=== PATIENT | female | born 2005 | race Caucasian/White ===

== ENCOUNTER 2023-07-25 06:01 | Inpatient (IN) | payer OTHER, SELFPAY ==
[2023-07-24 23:49] VITALS: BP 136/83
[2023-07-25] VITALS (10 sets, daily range): BP systolic 91–106; BP diastolic 49–67; BMI 21.9
[2023-07-25] MEDS: TYLENOL 650 MG PO ×4 (00:40→19:32)
--- NOTE | 2023-07-25 00:49 | ED.GENMED ---
History of Present Illness
General
Chief Complaint: Fever
Source: patient and family
Time Seen by Provider: 07/25/23 00:36
Travel History
Have you had any contact with someone who has COVID-19?: No
Do you have any symptoms of coronavirus? Fever > 100 degrees, chills, cough, shortness of breath, sore throat, loss of taste or smell, muscle aches, or headache?: No
History of Present Illness
History of Present Illness:
This patient is a very pleasant 17-year-old female who states that 1 week ago, last Wednesday, she noted dysuria and urinary frequency associated with urgency. The symptoms lasted until Wednesday and then spontaneously resolved. Coincidentally, on
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 Since that fall she has had discomfort in the right mid back area that is prickly worse when she moves a certain way. She states that it now also sort of feels
like it is under her ribs. She denies recent immobilization, leg swelling, recent vaginal discharge, abdominal pain. She does have mild anorexia today and developed fever today. She denies nausea, vomiting, URI symptoms. She does state a sick
contact and that her college roommate was recently diagnosed with an ear infection.
Past History
Past History
ED Past Medical History: Hypothyroidism
ED Past Surgical History: Tonsilectomy and Other (Thyroid cancer removal)
Social History
Tobacco: Non-smoker (vaping)
Alcohol: None
Drug: None
Personal: Single
Living: with roommate
Employment: Student
Phy Exam
Physical Exam
Physical Exam:
GENERAL: Alert , in no apparent distress, overall well-appearing nontoxic
EYE: pupils equal and reactive, no photophobia
NECK: Supple, no significant adenopathy.
ENT: o/p clr, mmm, TMs clear bilaterally.
CARDIAC: Regular rate and rhythm .
LUNGS: Clear breath sounds bilaterally, no acute respiratory distress, no wheezes/rales/rhonchi
ABDOMEN: Soft, without focal tenderness, no r/g, + right-sided cvat
NEUROLOGICAL: Alert and oriented, no focal neuro deficits
SKIN: Warm and dry, skin intact.
MUSCULOSKELETAL: No edema, well perfused.
PSYCH: Normal and appropriate interaction.
Course
Orders/Labs/Results
Orders:
Orders
07/25/23 00:17
Acetaminophen [Tylenol] 650 mg PO NOW STA
07/25/23 00:18
Test Result ONCE
07/25/23 00:43
Complete Blood Count/With Diff Urgent
Comprehensive Metabolic Panel Urgent
HCG, Serum Qualitative Screen Stat
TSH Reflex To Free T4 Urgent
Comment: ADD ON
Urinalysis Reflex To Culture Urgent
Date Specimen was Collected: 07/25/23
Time Specimen was Collected: 00:41
Urine Microscopic Reflex Cult Urgent
Blood Culture Q30M
POOL Source: Blood/Venous
Specimen Description:
Blood Culture Q30M
POOL Source: Blood/Venous
Specimen Description:
Urine Culture Urgent
POOL Source: U
Specimen Description:
Date Specimen was Collected: 07/25/23
Time Specimen was Collected: 00:41
07/25/23 00:52
0.9% Sodium Chloride 500 ml [Nss] 500 ml IV BOLUS
07/25/23 01:05
Add On- LAB Urgent
Tests Added?: TSH reflex t4
07/25/23 01:50
Piperacillin/Tazo 3.375 Gram [Zosyn] 3.375 gram in 50 ml IV NOW
07/25/23 04:05
0.9% Sodium Chloride 250 ml [Nss] 250 ml IV BOLUS
07/25/23 05:06
Ketorolac [Toradol] 15 mg IV NOW STA
07/25/23 05:18
Admit/Transfer Patient As Directed
Co-Sign Provider:
Level of Care: Inpatient admission
Assign to:: Telemetry
Physician / Group: Spenser
Diagnosis: Sepsis, Pyelonephritis
Reason for Telemetry: Arrhythmia
Date to Stop Telemetry: 07/28/23
Time to Stop Telemetry: 11:00
Reason for Hospitalization: Sepsis, Pyelonephritis
Expected length of stay greater than two midnights?: Yes
ELOS- Estimated Length of Stay in days: 2
I certify the patient meets the requirements for IP care: Yes
07/25/23 05:19
Code Status As Directed
Resuscitation Status: Full Code
07/25/23 08:08
Acetaminophen [Tylenol] 650 mg PO Q4HPRN PRN
Ondansetron Injectable [Zofran] 4 mg IV Q6HPRN PRN
07/25/23 08:08
Activity As Directed
Activity Level: Ambulate
I/O [Intake/ Output] As Directed
Frequency: Per unit guidelines
Pneumatic Compression Sleeves As Directed
Type: Knee high
Vital Signs As Directed
Frequency: Per unit guidelines
US Renal With Bladder Routine
Comment:
Reason For Exam: Right Pyelo
DX Deep Vein Thrombosis Video Routine
07/25/23 08:15
Lactated Ringers [Lr] 1,000 ml IV 125 mls/hr
Levothyroxine [Synthroid] 50 mcg PO DAILY@0700
07/25/23 10:00
Piperacillin/Tazo 3.375 Gram [Zosyn] 3.375 gram in 50 ml IV Q6H
07/25/23 11:09
Ketorolac [Toradol] 15 mg IV Q6HPRN PRN
07/25/23 Dinner
Regular
At Your Request: Full Participation
07/26/23 07:32
Basic Metabolic Panel IN AM
Complete Blood Count/No Diff IN AM
07/28/23 11:00
DC Protocol for Telemetry ONCE
Abnormal Lab Results
07/25/23
00:43
WBC 11.8 H 10^3/uL
(4.8-10.8)
RBC 4.12 L 10^6/uL
(4.20-5.40)
Hct 35.9 L %
(37.0-47.0)
MPV 11.8 H fL
(7.4-10.4)
Abs Immat Gran (auto) 0.2 H 10^3/uL
(0-0.05)
Absolute Neuts (auto) 10.5 H 10^3/uL
(1.4-6.5)
Absolute Lymphs (auto) 0.5 L 10^3/uL
(1.2-3.4)
Absolute Monos (auto) 0.7 H 10^3/uL
(0.1-0.6)
Immature Gran % 1.4 H %
(0-0.5)
Neutrophils % 88.7 H %
(42.2-75.2)
Lymphocytes % 3.8 L %
(20.5-51.1)
Potassium 3.4 L mmol/L
(3.5-5.1)
Glucose 137 H mg/dl
(70-99)
Ur Occult Blood Reflex Trace A
(Negative)
Urine Nitrite (Reflex) Positive A
(Negative)
Leukocyte Esterase Rfl 1+ A
(Negative)
Urine RBC 3-6 A /HPF
(0-2)
Urine WBC (Reflex) 70-80 A /HPF
(0-5)
Urine Bacteria (Reflex) Many A
(Negative)
07/25/23 00:43
07/25/23 00:43
Vital Signs
Initial and Last Documented VS:
Initial Vital Signs
Temp Pulse Resp BP Pulse Ox
100.4 F H 138 16 136/83 100
07/24/23 23:49 07/24/23 23:49 07/24/23 23:49 07/24/23 23:49 07/24/23 23:49
Last Documented Vital Signs
Temp Pulse Resp BP Pulse Ox
99.1 F 97 18 109/70 95
07/28/23 07:50 07/28/23 07:50 07/28/23 07:50 07/28/23 07:50 07/28/23 08:15
*Critical Care Note
Total Time (30-74mins, 75-104mins- exclusive of procedures): Not Applicable
Update Note
Update Note:
Patient presents to the Emergency Department with ___back pain and fever
Number and Complexity of Problems Addressed at the Encounter
� Chronic conditions affecting care:
� Acute Exacerbation and/or Progression of Chronic Illness:
� Differential Diagnosis includes: But not limited to UTI, pyelonephritis, musculoskeletal injury, viral syndrome, etc.
Amount and/or Complexity of Data to be Reviewed and Analyzed
� I performed an independent evaluation of and my interpretation is:
EKG:
CT:
Xrays:
Laboratory Studies: Mild white blood cell count elevation, slight shift noted, urine appears infected
Other:
� Review of other/old records reveals:
� Clinical information was obtained by an independent historian: Father who is at bedside
� Prescriptions/Medications Considered but not given:
� Further testing considered but not performed:
Risk of Complications and/or Morbidity or Mortality of Patient Management
� Social determinants of health affecting care:
� Discussion with other providers (PCP, Hospitalists, Consultants, etc):
� Escalation of care including admission/observation vs risk of discharge considered: Clinically appears that patient has pyelonephritis given fever, CVA tenderness, infected urine, white blood cell count elevation. She does not
appear to have more serious illness, and does not appear to be septic or have impending sepsis/bacteremia. Long discussion with patient, father who is bedside, and mother via phone given option for admission/observation versus going home with
expectant management and p.o. antibiotics they elect for discharge.
405 AM Reassessment...pt remains sl tachycardic. In context of left shift, persistent tachycardia, recommend admission for continued care.
ED Attending Note
-
Portions of this chart may have been created with voice recognition software.� Occasional wrong word or��sound alike� substitutions may have occurred due to the inherent limitations of voice recognition software.
Discharge Plan
Departure
Patient Disposition: Admit
Date of Disposition: 07/25/23
Time of Disposition: 04:06
Admit to: Med/Surg
Admit to doctor: spenser
Presentation/result/management discussed w/ accepting MD/DO: Hospitalist
Condition: Fair
Discharge Problem:
Pyelonephritis
Interventions
Interventions:
*Risk Screen - Suicide Last Done: 07/24/23 23:49
*General Assessment Last Done: 07/24/23 23:49
*Neglect/Abuse Screening Last Done: 07/24/23 23:49
ED- Fall Risk Assessment Last Done: 07/25/23 01:06
*ED COVID-19 Vaccine History Last Done: 07/25/23 07:06
*Nursing Disposition Last Done: 07/25/23 14:46
GV-Seagwg-Xyvoquuqxs Assessment Last Done: 07/25/23 01:06
ED-Female Genitourinary Assessment Last Done: 07/25/23 01:06
ED- Neurological Assessment Last Done: 07/25/23 01:06
ED-Skin Assessment Last Done: 07/25/23 01:06
Discharge Date and Time
Discharge Date/Time: 07/25/23 14:47
[2023-07-25] MEDS: NSS 500 IV (00:57)
[2023-07-25 00:59] LABS: Urine Albumin Trace (Neg - Trace); Urine Bilirubin Negative (Negative); Urine Character Slightly Cloudy (Clear); Urine Color Yellow; Urine Glucose Negative (Negative); Urine Ketone Negative (Negative); Urine Leukocyte 1+ (Negative); Urine Nitrite Positive (Negative); Urine Occult Blood Trace (Negative); Urine Specific Gravity 1.015 (<1.030); Urine Urobilinogen Negative (Neg - 1+)
[2023-07-25 01:11] LABS: HCG, Serum Qualitative Screen Negative
[2023-07-25 01:16] LABS: ALT (SGPT) 14 U/L (0-35); AST (SGOT) 17 U/L (14-36); Albumin 3.8 g/dl (3.5-5.0); Alkaline Phosphatase 71 U/L (38-126); Blood Urea Nitrogen 8 mg/dl (7-17); Calcium 8.9 mg/dl (8.4-10.2); Carbon Dioxide 23 mmol/L (22-30); Chloride 106 mmol/L (98-107); Glucose 137 mg/dl (70-99); Potassium 3.4 mmol/L (3.5-5.1); Sodium 139 mmol/L (135-145); Total Bilirubin 0.4 mg/dl (0.2-1.3); Total Protein 6.4 g/dl (6.3-8.2); eGFR > 60.00
[2023-07-25 01:17] LABS: % Basophils 0.2 % (0-2); % Eosinophils 0.1 % (0-6); % Immature Granulocytes 1.4 % (0-0.5); % Lymphocytes 3.8 % (20.5-51.1); % Monocytes 5.8 % (1.7-9.3); % Neutrophils 88.7 % (42.2-75.2); Absolute Immature Granulocytes 0.2 10^3/uL (0-0.05); Absolute Lymphocytes 0.5 10^3/uL (1.2-3.4); Absolute Monocytes 0.7 10^3/uL (0.1-0.6); Absolute Neutrophils 10.5 10^3/uL (1.4-6.5); Hematocrit 35.9 % (37.0-47.0); Hemoglobin 12.2 g/dL (12.0-16.0); Mean Corpuscular Hgb 29.6 pg (27.0-31.0); Mean Corpuscular Volume 87.1 fL (81.0-99.0); Mean Platelet Volume 11.8 fL (7.4-10.4); Nucleated Red Blood Cells % 0 %; Platelet Count 150 10^3/uL (130-400); Red Blood Cell Count 4.12 10^6/uL (4.20-5.40); Red Cell Dist. Width 12.5 % (11.5-14.5); White Blood Cell Count 11.8 10^3/uL (4.8-10.8)
[2023-07-25 01:22] LABS: Urine Bacteria Many (Negative); Urine White Cell 70-80 /HPF (0-5)
[2023-07-25 03:14] LABS: TSH Reflex To Free T4 1.87 uIU/ml (0.47-4.68)
[2023-07-25] MEDS: ZOSYN 50 IV ×4 (03:17→21:36)
[2023-07-25] MEDS: NSS 250 IV (04:12)
--- NOTE | 2023-07-25 05:06 | EDRN ---
Patient reporting some discomfort in her back asking for some meds, Dr. Roberts aware and medication ordered.
[2023-07-25] MEDS: TORADOL 15 MG IV ×2 (05:09→17:51)
--- NOTE | 2023-07-25 05:22 | HPS.HSE ---
Family Physician
-
Family Physician: Rg Morris
Chief Complaint
-
R Flank Pain / Fever
History of Present Illness
Patient is a 17y F with PMH significant for thyroid cancer / Mari's thyroiditis who presents to ED complaining of fever and R flank pain. Patient states that she developed dysuria about one week ago. On Wednesday, the dysuria resolved -
however, she then noted pain in the R flank. Patient states that she had a sports injury just prior to this and thought that was the reason for her pain. The flank pain did not improve and worsened over the past few days. It radiates into the
upper back and anterior / abdomen.
Patient developed a fever at home yesterday up to 103.9 degrees. She presented to the ED for further evaluation.
Medical History
Past Medical History
Past Medical History: Reports Other
Additional Past Medical History:
Papillary Carcinoma of the Thyroid
Mari's Disease
Past Surgical History: Reports Other
Additional Past Surgical History:
Partial Thyroidectomy
T&A
Social History
Tobacco: Non-smoker
Alcohol: Occasional
Drug: None
Family History
Family History: Not pertinent
Allergies / Home Medications
Allergies reflects when Allergies were last updated in Risk I/O.
Home Medications with original date entered in Risk I/O
Allergy/Medication List:
Allergies
Allergy/AdvReac Type Severity Reaction Status Date / Time
cephalexin monohydrate Allergy Intermediate Rash Verified 02/12/21 05:42
[From Keflex]
morphine Allergy Intermediate Rash Verified 02/12/21 05:42
midazolam AdvReac behavioral Verified 02/12/21 05:42
change,
agitation
Home Medications
levothyroxine 50 mcg tablet 50 mcg PO DAILY 07/25/23
Review of Systems
-
History Source: Patient
A 12 point ROS was completed and negative except as noted: Yes
Constitutional: Reports Fever and Chills; Denies Fatigue
Respiratory: Denies Cough or Trouble Breathing
Cardiac: Denies Chest Pain or Palpitations
Abdomen/GI: Reports Abdominal Pain and Nausea; Denies Vomiting, Diarrhea or Constipated
: Reports Dysuria, Frequency and Flank Pain; Denies Bleeding or Discharge
Neurological: Denies Dizzy or Headache
Psych: Denies Depression or Anxiety
Physical Exam
Vital Signs
Vital Signs
Temp Pulse Resp BP Pulse Ox
98.6 F 96 16 95/53 99
07/25/23 05:06 07/25/23 05:06 07/25/23 05:06 07/25/23 05:06 07/25/23 05:06
Physical Exam
General: Other (17y F in no acute distress.)
HEENT: Moist mucous membranes, PERRLA and Other (Thyroidectomy scar.)
Respiratory: Clear and Other (pain with deep breathing.); No Wheezes, Rales or Rhonchi
Cardiac: S1/S2 and Regular Rhythm; No Murmur
GI: Soft, Non Distended, Normal Bowel Sounds and Other (Pos R sided abdominal tenderness without rebound / guarding.)
Genito-urinary: Costovertebral angle tend (Right CVAT)
Musculoskeletal: No Clubbing, No Cyanosis and No Edema
Neuro: AO x 3
Laboratory Results
-
07/25/23 00:43
07/25/23 00:43
Laboratory Results
Total Bilirubin 0.4 mg/dl (0.2-1.3) 07/25/23 00:43
AST 17 U/L (14-36) 07/25/23 00:43
ALT 14 U/L (0-35) 07/25/23 00:43
Alkaline Phosphatase 71 U/L (38-126) 07/25/23 00:43
Impression/Plan
-
A?P: Patient is a 17y F with PMH significant for thyroid cancer / hypothyroidism who presents to ED complaining of right flank pain and fevers.
Right Pyelonephritis
Sepsis secondary to the above
- Admit for further evaluation and treatment.
- Patient presents with fever, tachycardia and leukocytosis in the setting of urinary symptoms, flank pain and positive UA.
- IV abx with Zosyn (allergic to cephalosporins). Follow-up culture data and adjust as needed.
- Supportive care including antipyretics, pain control, IVFs, etc.
- Follow for clinical improvement.
- Change to PO regimen once afebrile x 24 hours.
Papillary Carcinoma of the Thyroid
- Patient is s/p partial thyroidectomy.
- Has follow-up scan scheduled for Wednesday at [place] - may need to be rescheduled depending on hospital course here.
Hypothyroidism
- Stable. Continue current T4 supplementation / suppression.
DVT Prophylaxis: SCDs
Code Status: Full
--- NOTE | 2023-07-25 06:04 | EDRN ---
Resting with mom at bedside
[2023-07-25] MEDS: LR 1000 IV ×2 (08:24→15:33)
[2023-07-25] MEDS: SYNTHROID 50 MCG PO (08:25)
--- NOTE | 2023-07-25 14:11 | W.PN.UPDATE ---
Update Note
Progress Note Update
Dr. Greenwood this morning.
Admitted for right Kidney pyelonephritis. She is hemodynamically stable. Nontoxic looking.
Ultrasound of the abdomen shows no nephrolithiasis or obstruction. 2 separate areas 2 cm densities are noted .
Will need CT of the kidneys with contrast to evaluate for abscess.
This was discussed with patient and the parents at the bedside. Continue with Zosyn
[2023-07-25 20:49] LABS: HCG, Urine Qualitative Screen Negative
[2023-07-26] VITALS (7 sets, daily range): BP systolic 86–125; BP diastolic 47–63
[2023-07-26] MEDS: LR 1000 IV ×4 (00:31→19:41)
[2023-07-26] MEDS: TORADOL 15 MG IV ×3 (01:04→23:49)
[2023-07-26] MEDS: TYLENOL 650 MG PO ×4 (02:45→22:26)
--- NOTE | 2023-07-26 04:04 | PTCARENOTE ---
Patient BP- 86/54, HR-111. patient is asymptomatic/sleeping at this time. MANJIT Barragan made aware.
[2023-07-26] MEDS: ZOSYN 50 IV ×4 (04:49→21:02)
[2023-07-26] MEDS: SYNTHROID 50 MCG PO (04:55)
[2023-07-26 07:51] LABS: Mean Corp Hgb Conc. 34.5 g/dL (33.0-37.0); Mean Corpuscular Hgb 28.9 pg (27.0-31.0); Mean Corpuscular Volume 83.8 fL (81.0-99.0); Mean Platelet Volume 11.7 fL (7.4-10.4); Platelet Count 142 10^3/uL (130-400); Red Blood Cell Count 3.46 10^6/uL (4.20-5.40); Red Cell Dist. Width 13.2 % (11.5-14.5); White Blood Cell Count 12.4 10^3/uL (4.8-10.8)
[2023-07-26 08:18] LABS: Blood Urea Nitrogen 9 mg/dl (7-17); Calcium 7.8 mg/dl (8.4-10.2); Carbon Dioxide 23 mmol/L (22-30); Chloride 104 mmol/L (98-107); Estimated Creatinine Clearance 107 ml/min; Glucose 98 mg/dl (70-99); Potassium 3.3 mmol/L (3.5-5.1); Sodium 135 mmol/L (135-145); eGFR > 60.00
[2023-07-26] MEDS: KCL ELIXIR 40 MEQ PO (09:27)
--- NOTE | 2023-07-26 12:34 | CM ---
Chart reviewed. Spoke with pt and parents at bedside
Pt lives in a 2 story home with her parents and sister. She is in school, independent
Denies DME, past HH/SNF
PCP -Dr Rg Morris
Pharm - [facility]
Plan - anticipate home no needs
--- NOTE | 2023-07-26 14:23 | W.PN.HOSP.TC ---
Today's Communication/Plan
-
cont abx
f/u GC
F/u cultures
IVF
Assessment / Plan
Assessment / Plan
Physical Exam
General: Other (17y F in no acute distress.)
HEENT: Moist mucous membranes, PERRLA and Other (Thyroidectomy scar.)
Respiratory: Clear and Other (pain with deep breathing.); No Wheezes, Rales or Rhonchi
Cardiac: S1/S2 and Regular Rhythm; No Murmur
GI: Soft, Non Distended, Normal Bowel Sounds and Other (Pos R sided abdominal tenderness without rebound / guarding.)
Genito-urinary: Costovertebral angle tend (Right CVAT)
Musculoskeletal: No Clubbing, No Cyanosis and No Edema
Neuro: AO x 3
A/P:� Patient is a 17y F with PMH significant for thyroid cancer / hypothyroidism who presents to ED complaining of right flank pain and fevers.
Right Pyelonephritis
Sepsis secondary to the above
� E. coli
-Symptomatically improving
- IV abx with Zosyn (allergic to cephalosporins).� Follow-up culture data and adjust as needed.
�- Supportive care including antipyretics, pain control, IVFs, etc.
�- Follow for clinical improvement.
�- Change to PO regimen once afebrile x 24 hours.
� Follow-up GC
Hypokalemia
-monitor and replete
Papillary Carcinoma of the Thyroid
�- Patient is s/p partial thyroidectomy.
�- Has follow-up scan scheduled for Wednesday at [place] - may need to be rescheduled depending on hospital course here.
Hypothyroidism
�- Stable.� Continue current T4 supplementation / suppression.
DVT Prophylaxis:� SCDs
Code Status:� Full
Anticipated Discharge: Within 24 hours
Subjective/Interval History
-
Date of Service: July 26, 2023
Symptoms improved today, nontoxic
Objective Data
-
Labs:
Laboratory Results
07/26/23
07:32
WBC 12.4 H
Hgb 10.0 L
Hct 29.0 L
Plt Count 142
Sodium 135
Potassium 3.3 L
Chloride 104
Carbon Dioxide 23
BUN 9
Creatinine 0.7
Glucose 98
Calcium 7.8 L
Vital Signs:
Vital Signs
Temp Pulse Resp BP Pulse Ox
98.4 F 111 18 104/54 97
07/26/23 11:31 07/26/23 11:31 07/26/23 11:31 07/26/23 11:31 07/26/23 11:31
I&O
07/25/23 07/26/23 07/27/23
06:59 06:59 06:59
Intake Total 2675 / 2675
Output Total 600 / 600
Balance 2074
Review of Systems
-
History Source: Patient
All other systems: Not reviewed unless documented
Data Reviewed
-
CT Scan: Image personally visualized and interpreted and Report Reviewed by me
Labs: Labs Reviewed by me
[2023-07-26] MEDS: KCL 40 MEQ PO (15:05)
[2023-07-27 03:20] VITALS: BP 117/71
[2023-07-27] MEDS: ZOSYN 50 IV ×2 (03:42→09:01)
[2023-07-27] MEDS: LR 1000 IV (03:43)
[2023-07-27] MEDS: TORADOL 15 MG IV (05:50)
[2023-07-27] MEDS: SYNTHROID 50 MCG PO (05:50)
[2023-07-27 07:27] VITALS: BP 113/74
[2023-07-27 08:36] LABS: Hematocrit 30.4 % (37.0-47.0); Hemoglobin 10.3 g/dL (12.0-16.0); Mean Corp Hgb Conc. 33.9 g/dL (33.0-37.0); Mean Corpuscular Hgb 28.8 pg (27.0-31.0); Mean Corpuscular Volume 84.9 fL (81.0-99.0); Mean Platelet Volume 11.8 fL (7.4-10.4); Platelet Count 173 10^3/uL (130-400); Red Blood Cell Count 3.58 10^6/uL (4.20-5.40); Red Cell Dist. Width 13.5 % (11.5-14.5); White Blood Cell Count 14.1 10^3/uL (4.8-10.8)
[2023-07-27 09:22] LABS: ALT (SGPT) 15 U/L (0-35); AST (SGOT) 19 U/L (14-36); Albumin 2.4 g/dl (3.5-5.0); Alkaline Phosphatase 80 U/L (38-126); Blood Urea Nitrogen 10 mg/dl (7-17); Calcium 8.1 mg/dl (8.4-10.2); Carbon Dioxide 22 mmol/L (22-30); Chloride 107 mmol/L (98-107); Estimated Creatinine Clearance 125 ml/min; Glucose 84 mg/dl (70-99); Potassium 3.7 mmol/L (3.5-5.1); Sodium 136 mmol/L (135-145); Total Bilirubin 0.4 mg/dl (0.2-1.3); Total Protein 4.7 g/dl (6.3-8.2); eGFR > 60.00
--- NOTE | 2023-07-27 14:46 | W.PN.HOSP.TC ---
Today's Communication/Plan
-
bacteremia
f/u final cultures
repeat blood cultures
ID consult
abd vio, hepatitis panel
stop fluids
Assessment / Plan
Assessment / Plan
Physical Exam
General: Other (17y F in no acute distress.)
HEENT: Moist mucous membranes, PERRLA and Other (Thyroidectomy scar.)
Respiratory: Clear and Other (pain with deep breathing.); No Wheezes, Rales or Rhonchi
Cardiac: S1/S2 and Regular Rhythm; No Murmur
GI: Soft, Non Distended, Normal Bowel Sounds and Other (Pos R sided abdominal tenderness without rebound / guarding.)
Genito-urinary: Costovertebral angle tend (Right CVAT)
Musculoskeletal: No Clubbing, No Cyanosis and No Edema
Neuro: AO x 3
A/P:� Patient is a 17y F with PMH significant for thyroid cancer / hypothyroidism who presents to ED complaining of right flank pain and fevers.
Right Pyelonephritis
Bacteremia
Sepsis secondary to the above
� E. coli, still following up cultures
-Symptomatically improving
- IV abx with Zosyn (allergic to cephalosporins).� Follow-up culture data and adjust as needed.
�- Supportive care including antipyretics, pain control, IVFs, etc.
�- Follow for clinical improvement.
�- Change to PO regimen once afebrile x 24 hours.
� repeat blood cultures today
-ID consulted for bacteremia
# Mild periportal edema
#Fluid attenuation surrounding gallbladder
� Abdominal fullness
� I suspect secondary to acute pyelonephritis, aggressive fluid resuscitation
� Stop IV fluids, hemodynamically stable
� Continue antibiotics
� Follow-up complete abdominal ultrasound, hepatitis panel for completeness sake
Hypokalemia
-monitor and replete
Papillary Carcinoma of the Thyroid
�- Patient is s/p partial thyroidectomy.
�- Has follow-up scan scheduled for Wednesday at [place] - may need to be rescheduled depending on hospital course here.
Hypothyroidism
�- Stable.� Continue current T4 supplementation / suppression.
DVT Prophylaxis:� SCDs
Code Status:� Full
Total time spent on today's encounter was 50 minutes which included time spent in counseling the patient/family regarding diagnosis and treatment plan as listed above, goals of care, and symptom management. Case was discussed with nursing staff,
specialists, and care coordinators/case management. All labs and imaging personally reviewed by me. Remainder the time spent in detailed review of previous records, lab data, imaging, and other medical provider documentation.
Anticipated Discharge: > 48 hours
Subjective/Interval History
-
Date of Service: July 27, 2023
Hai temperature last night, feels lethargic today; mild abdominal distention
Objective Data
-
Labs:
Laboratory Results
07/27/23
08:00
WBC 14.1 H
Hgb 10.3 L
Hct 30.4 L
Plt Count 173 D
Sodium 136
Potassium 3.7
Chloride 107
Carbon Dioxide 22
BUN 10
Creatinine 0.6
Glucose 84
Calcium 8.1 L
Total Bilirubin 0.4
AST 19
ALT 15
Alkaline Phosphatase 80
Vital Signs:
Vital Signs
Temp Pulse Resp BP Pulse Ox
98.9 F 104 18 113/74 93
07/27/23 07:27 07/27/23 07:27 07/27/23 07:27 07/27/23 07:27 07/27/23 10:42
I&O
07/26/23 07/27/23 07/28/23
06:59 06:59 06:59
Intake Total 2675 / 2675 1954
Output Total 600 / 600
Balance 2074 / 2074
Review of Systems
-
History Source: Patient
All other systems: Not reviewed unless documented
--- NOTE | 2023-07-27 14:59 | CON.ID ---
Consultation
-
Date/Time Consultation Requested: 07/27/2023, 1458
Date/Time Consultation Performed: 07/27/2023, 1500
Requesting Provider: Dr. Pedro Reyes
Performing Provider: Dr. Monique Rios
Reason for Consultation: Pyelo with bacteremia
Chief Complaint / Past History
Chief Complaint
Right flank pain
History of Present Illness
History obtained from patient and mom at bedside. 17 year old female with hx of thyroid ca s/p partial thyroidectomy, Mari thyroiditis who developed dysuria last week from Wed to Wed. Dysuria resolved. Wed night she was dancing in [place] and
fell. She started having right side back pain which she thought was from the fall. However, pain became severe. She also developed fever up to 103.9F and came to ED 07/23. T=100.4, wbc 11.8. Renal US suggestive of right pyelo. She was started on
Zosyn. Flank pain has improved. No c/o upper abd discomfort, swelling of feet and hands; IV fluid discontinued today. Last night had fever x 1 with chills. WBC remains elevated. No hx of pyelo. No hx of diagnosed UTI. Occassionally, she has
dysuria which spontaneously resolves. No recent diarrhea or stool incontinence.
Past History
Additional Past Medical History:
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
Allergy History:
cephalexin monohydrate [From Keflex] Allergy (Intermediate, Verified 02/12/21 05:42)
Rash
morphine Allergy (Intermediate, Verified 02/12/21 05:42)
Rash
midazolam Adverse Reaction (Verified 02/12/21 05:42)
behavioral change, agitation
Medications Reviewed: Yes
Current Antibiotics:
Zosyn d4
Social History
Tobacco: Non-Smoker
Alcohol: Occasional
Drug: None
Personal: Single
Family History
Family History: Not Pertinent
Review of Systems
Review of Systems
General: Fever and Chills
HEENT: Negative Stiff Neck, Sinus Problems, Headache or Pharyngitis
Cardiovascular: Negative Chest Pain
Respiratory: Negative Dyspnea or Cough
Gasteroenterology: Other (no diarrhea); Negative Nausea or Vomiting
Genital / Urological: Negative Stones
Endocrine: Negative Weakness
Musculoskeletal: Negative Arthralgias
Skin / Hair / Nails: Negative Rash
Neurological: Negative Headache or Dizziness
All systems: All other systems were reviewed and were negative
Vital Signs
Temp Pulse Resp BP Pulse Ox
98.9 F 104 18 113/74 93
07/27/23 07:27 07/27/23 07:27 07/27/23 07:27 07/27/23 07:27 07/27/23 10:42
Selected Entries
07/26/23
23:39
Temp 101.8 F H
Physical Exam
Physical Exam
Constitutional: No Acute Distress and Comfortable
Eyes: No Conjunctival Hemorrhage and Sclera Anicteric
Cardiovascular: Regular Rate and S1/S2
Pulmonary: Clear
Gastrointestinal: Soft, Non Tender, Non Distended and Normal Bowel Sounds
Genito-Urinary: Negative CVA Tenderness
Extremities: Edema (pedal/ankle edema)
Skin: Negative Rash
Neurological: AO x 3
Lab / Diagnostic Study Results
07/27/23 08:00
07/27/23 08:00
Abs Immat Gran (auto) 0.2 10^3/uL (0-0.05) H 07/25/23 00:43
Absolute Neuts (auto) 10.5 10^3/uL (1.4-6.5) H 07/25/23 00:43
Absolute Lymphs (auto) 0.5 10^3/uL (1.2-3.4) L 07/25/23 00:43
Absolute Monos (auto) 0.7 10^3/uL (0.1-0.6) H 07/25/23 00:43
Absolute Basos (auto) 0.0 10^3/uL (0-0.2) 07/25/23 00:43
Immature Gran % 1.4 % (0-0.5) H 07/25/23 00:43
Neutrophils % 88.7 % (42.2-75.2) H 07/25/23 00:43
Lymphocytes % 3.8 % (20.5-51.1) L 07/25/23 00:43
Monocytes % 5.8 % (1.7-9.3) 07/25/23 00:43
Eosinophils % 0.1 % (0-6) 07/25/23 00:43
Basophils % 0.2 % (0-2) 07/25/23 00:43
Ur Squamous Epith Cells 6-10 /LPF (Few) 07/25/23 00:43
Microbiology Results
Micro:
07/25/23 00:43 Blood Culture - Preliminary
Blood/Venous Escherichia coli
Gram Stain - Preliminary
07/25/23 00:43 Urine Culture - Final
Urine Escherichia coli
07/25/23 00:43 Blood Culture - Preliminary
Blood/Venous No Growth in 48 hours- Final report to follow
07/26/23 17:17 Chlamydia trachomatis (PCR) - Final
Urine Neisseria gonorrhoeae (PCR) - Final
CT a/p: Findings consistent with urinary tract infection on the right, with pyelonephritis. Perinephric edema, though without focal collection or abscess. No obstructing calculus.
Assessment / Plan
# E. coli Right pyelonephritis without obstruction
# E. coli bacteremia
# Sepsis - WBC trending up, recurrence of fever last night
- Agree with repeat blood cx's
- DC Zosyn
- Start po cipro 500mg bid
- Trend wbc and temps.
[2023-07-27] MEDS: LR IV (15:10)
[2023-07-27 15:30] VITALS: BP 113/77
[2023-07-27 16:01] LABS: Hepatitis B Surface Antigen Negative (Negative)
[2023-07-27 16:04] LABS: Hepatitis B Core Ab, IgM Negative (Negative)
--- NOTE | 2023-07-27 16:17 | CM ---
Chart reviewed for d/c planning
Transitioning to PO abx - and monitor VS/labs
CM will follow for d/c needs
Plan - home no needs
[2023-07-27 16:18] LABS: Hepatitis B Surface Antibody Negative; Hepatitis C Antibody Negative (Negative)
[2023-07-27 16:49] LABS: Hepatitis A IgM Antibody Negative (Negative)
[2023-07-27] MEDS: TYLENOL 650 MG PO (18:00)
[2023-07-27] MEDS: CIPRO 500 MG PO (21:21)
[2023-07-27 23:00] VITALS: BP 105/67
[2023-07-28] MEDS: TYLENOL 650 MG PO ×2 (04:06→19:11)
[2023-07-28] MEDS: SYNTHROID 50 MCG PO (05:49)
[2023-07-28 06:00] LABS: Hematocrit 28.5 % (37.0-47.0); Hemoglobin 9.9 g/dL (12.0-16.0); Mean Corp Hgb Conc. 34.7 g/dL (33.0-37.0); Mean Corpuscular Hgb 29.1 pg (27.0-31.0); Mean Corpuscular Volume 83.8 fL (81.0-99.0); Mean Platelet Volume 10.9 fL (7.4-10.4); Platelet Count 186 10^3/uL (130-400); Red Cell Dist. Width 13.6 % (11.5-14.5); White Blood Cell Count 7.9 10^3/uL (4.8-10.8)
[2023-07-28 06:30] LABS: ALT (SGPT) 16 U/L (0-35); AST (SGOT) 20 U/L (14-36); Albumin 2.4 g/dl (3.5-5.0); Alkaline Phosphatase 78 U/L (38-126); Blood Urea Nitrogen 12 mg/dl (7-17); Calcium 7.9 mg/dl (8.4-10.2); Carbon Dioxide 23 mmol/L (22-30); Chloride 106 mmol/L (98-107); Estimated Creatinine Clearance 125 ml/min; Glucose 97 mg/dl (70-99); Potassium 3.5 mmol/L (3.5-5.1); Sodium 137 mmol/L (135-145); Total Bilirubin 0.3 mg/dl (0.2-1.3); Total Protein 4.8 g/dl (6.3-8.2); eGFR > 60.00
[2023-07-28] MEDS: CIPRO 500 MG PO ×2 (07:28→21:54)
[2023-07-28 07:50] VITALS: BP 109/70
--- NOTE | 2023-07-28 13:17 | W.PN.ID1 ---
Date of Service
Date of Service: July 28, 2023
Today's Communication
See below
Assessment / Plan
# Recurrence of fever persists
# Leukocytosis resolved today
- Check COVID19
- Follow repeat blood cx's
-Trend temps.
# E. coli Right pyelonephritis without obstruction
# E. coli bacteremia
- Flank pain resolving
- Continue po cipro 500mg bid (d4 abx)
# Upper abd pain
- Abd US: trace ascites
-Check amylase, lipase in am
#Additional Past Medical History:
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
Chief Complaint
-: Fever and UTI
Subjective / Review of Systems
+ fevers/chills. Epigastric pain better.
No dysuria. Right flank pain resolving.
Vital Signs / Physical Exam
Vital Signs
Vital Signs
Temp Pulse Resp BP Pulse Ox
98.0 F 97 18 109/70 95
07/28/23 11:35 07/28/23 07:50 07/28/23 07:50 07/28/23 07:50 07/28/23 08:15
Selected Entries
07/27/23
17:48 07/28/23
04:06
Temp 103.0 F H 102.3 F H
Physical Exam
Constitutional: No Acute Distress
Cardiovascular: Regular Rate and S1/S2
Pulmonary: Other (Decreased BS bases)
Gastrointestinal: Soft, Non Tender and Non Distended
Genito-Urinary: Negative CVA Tenderness
Objective Data
Lab Data
Lab Results
07/28/23 05:39
07/28/23 05:39
Estimated Creat Clear 125 ml/min 07/28/23 05:39
Total Bilirubin 0.3 mg/dl (0.2-1.3) 07/28/23 05:39
AST 20 U/L (14-36) 07/28/23 05:39
ALT 16 U/L (0-35) 07/28/23 05:39
Alkaline Phosphatase 78 U/L (38-126) 07/28/23 05:39
Most recent labs reviewed.
Micro Results:
07/28/23 09:41 Blood Culture - Pending
Blood/Venous
07/25/23 00:43 Blood Culture - Preliminary
Blood/Venous No Growth in 72 hours- Final report to follow
07/27/23 15:47 Blood Culture - Pending
Blood/Venous
07/27/23 15:05 Blood Culture - Pending
Blood/Venous
07/25/23 00:43 Blood Culture - Preliminary
Blood/Venous Escherichia coli
Gram Stain - Preliminary
07/25/23 00:43 Urine Culture - Final
Urine Escherichia coli
07/26/23 17:17 Chlamydia trachomatis (PCR) - Final
Urine Neisseria gonorrhoeae (PCR) - Final
07/25/23 CT a/p: Findings consistent with urinary tract infection on the right, with pyelonephritis. Perinephric edema, though without focal collection or abscess. No obstructing calculus.
07/28/23 ABD US: Normal appearance of the gallbladder, with no evidence for biliary ductal dilation. Bilateral pleural effusions are present. Trace amount of ascites is seen within the abdomen.
--- NOTE | 2023-07-28 13:23 | PN.CDI ---
CDI
- -
CDI:
Physician Documentation Request
Admit Date: 07/25/23 06:01
Dear Doctor Silva,
Patient admitted with sepsis secondary to right pyelonephritis.
UA with many bacteria and positive nitrites.
Urine culture with E. coli
Patient received IV Zosyn and po Cipro.
Please provide in your note the diagnosis associated with the UA and urine culture findings:
E. coli UTI
Insignificant abnormal lab findings
Other
Use of terms such as suspected, likely, concern for, or probable (associated with a specific diagnosis that is being evaluated, monitored, or treated as if it exists) are acceptable and can be coded in the inpatient setting, when documented at the
time of discharge.
Thank you,
Tamy LEIN,RN,CCDS
CDI Specialist
Please use your independent medical judgment in providing your response.
[2023-07-28 13:52] LABS: COVID-19 Antigen Negative (Negative)
--- NOTE | 2023-07-28 14:12 | W.PN.HOSP.TC ---
Today's Communication/Plan
-
f/u covid
cont abx, f/u cultures
Assessment / Plan
Assessment / Plan
Physical Exam
General: Other (17y F in no acute distress.)
HEENT: Moist mucous membranes, PERRLA and Other (Thyroidectomy scar.)
Respiratory: Clear and Other (pain with deep breathing.); No Wheezes, Rales or Rhonchi
Cardiac: S1/S2 and Regular Rhythm; No Murmur
GI: Soft, Non Distended, Normal Bowel Sounds and Other (Pos R sided abdominal tenderness without rebound / guarding.)
Genito-urinary: Costovertebral angle tend (Right CVAT)
Musculoskeletal: No Clubbing, No Cyanosis and No Edema
Neuro: AO x 3
A/P:� Patient is a 17y F with PMH significant for thyroid cancer / hypothyroidism who presents to ED complaining of right flank pain and fevers.
Right Pyelonephritis
Bacteremia
Sepsis secondary to the above
� E. coli, still following up cultures
-Symptomatically improving
- Continue po cipro 500mg bid (d4 abx) Follow-up culture data and adjust as needed.
�- Supportive care including antipyretics, pain control, IVFs, etc.
�- Follow for clinical improvement.
�- Change to PO regimen once afebrile x 24 hours.
� repeat blood cultures today
-ID consulted
-F/u COVID
# Mild periportal edema
#Fluid attenuation surrounding gallbladder
� Abdominal fullness
� I suspect secondary to acute pyelonephritis, aggressive fluid resuscitation
� Stop IV fluids, hemodynamically stable
� Continue antibiotics
� Follow-up complete abdominal ultrasound: unremarkable for any acute issues, or collection formation at the site of the kidneys
-F/u hepatitis panel for completeness sake
Hypokalemia
-monitor and replete
Papillary Carcinoma of the Thyroid
�- Patient is s/p partial thyroidectomy.
�- Has follow-up scan scheduled for Wednesday at [facility] - may need to be rescheduled depending on hospital course here.
Hypothyroidism
�- Stable.� Continue current T4 supplementation / suppression.
DVT Prophylaxis:� SCDs; ambulating well
Code Status:� Full
Total time spent on today's encounter was 55 minutes which included time spent in counseling the patient/family regarding diagnosis and treatment plan as listed above, goals of care, and symptom management. Case was discussed with nursing staff,
specialists, and care coordinators/case management. All labs and imaging personally reviewed by me. Remainder the time spent in detailed review of previous records, lab data, imaging, and other medical provider documentation.
Anticipated Discharge: 24 - 48 hours
Subjective/Interval History
-
Date of Service: July 28, 2023
Spiked temperature this morning
Objective Data
-
Labs:
Laboratory Results
07/28/23
05:39
WBC 7.9
Hgb 9.9 L
Hct 28.5 L
Plt Count 186
Sodium 137
Potassium 3.5
Chloride 106
Carbon Dioxide 23
BUN 12
Creatinine 0.6
Glucose 97
Calcium 7.9 L
Total Bilirubin 0.3
AST 20
ALT 16
Alkaline Phosphatase 78
Vital Signs:
Vital Signs
Temp Pulse Resp BP Pulse Ox
98.0 F 97 18 109/70 95
07/28/23 11:35 07/28/23 07:50 07/28/23 07:50 07/28/23 07:50 07/28/23 08:15
I&O
07/27/23 07/28/23 07/29/23
06:59 06:59 06:59
Intake Total 1954 3520 / 3520
Balance 1954 3520 / 3520
Review of Systems
-
History Source: Patient
All other systems: Not reviewed unless documented
Data Reviewed
-
CT Scan: Image personally visualized and interpreted and Report Reviewed by me
Ultrasound: Image personally visualized and interpreted and Report Reviewed by me
Labs: Labs Reviewed by me
[2023-07-28 15:33] VITALS: BP 120/78
[2023-07-28 23:00] VITALS: BP 117/72
[2023-07-29] MEDS: SYNTHROID 50 MCG PO (06:06)
[2023-07-29 07:00] VITALS: BP 116/76
[2023-07-29] MEDS: CIPRO 500 MG PO (07:48)
[2023-07-29 07:54] LABS: Hematocrit 30.2 % (37.0-47.0); Hemoglobin 10.3 g/dL (12.0-16.0); Mean Corp Hgb Conc. 34.1 g/dL (33.0-37.0); Mean Corpuscular Hgb 28.9 pg (27.0-31.0); Mean Corpuscular Volume 84.8 fL (81.0-99.0); Mean Platelet Volume 10.5 fL (7.4-10.4); Platelet Count 211 10^3/uL (130-400); Red Blood Cell Count 3.56 10^6/uL (4.20-5.40); Red Cell Dist. Width 13.7 % (11.5-14.5); White Blood Cell Count 6.6 10^3/uL (4.8-10.8)
[2023-07-29 08:22] LABS: ALT (SGPT) 28 U/L (0-35); AST (SGOT) 35 U/L (14-36); Albumin 2.8 g/dl (3.5-5.0); Alkaline Phosphatase 81 U/L (38-126); Amylase 39 U/L (30-110); Blood Urea Nitrogen 6 mg/dl (7-17); Carbon Dioxide 22 mmol/L (22-30); Chloride 109 mmol/L (98-107); Estimated Creatinine Clearance 125 ml/min; Glucose 92 mg/dl (70-99); Lipase 69 U/L (23-300); Potassium 3.7 mmol/L (3.5-5.1); Sodium 135 mmol/L (135-145); Total Bilirubin 0.3 mg/dl (0.2-1.3); Total Protein 5.3 g/dl (6.3-8.2); eGFR > 60.00
--- NOTE | 2023-07-29 10:46 | W.PN.ID1 ---
Date of Service
Date of Service: July 29, 2023
Today's Communication
Continue po cipro 500mg bid (d5 abx) through 08/07/23.
From ID standpoint, can dc home.
Assessment / Plan
# Recurrence of fever resolving
# Leukocytosis resolved
- COVID19 negative
- repeat blood cx's x 3 neg to date
# E. coli Right pyelonephritis without obstruction
# E. coli bacteremia
- Flank pain resolved
- Continue po cipro 500mg bid (d5 abx) through 08/07/23.
# Upper abd pain resolving
- Abd US: trace ascites
-amylase, lipase negative
#Additional Past Medical History:
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
Chief Complaint
-: Fever and UTI
Subjective / Review of Systems
Feels much improved today. Slight fever x 1 yesterday. Upper abd discomfort resolving.
Vital Signs / Physical Exam
Vital Signs
Vital Signs
Temp Pulse Resp BP Pulse Ox
99.8 F 101 16 116/76 99
07/29/23 07:00 07/29/23 07:00 07/29/23 07:00 07/29/23 07:00 07/29/23 08:15
Physical Exam
Constitutional: No Acute Distress and Comfortable
Pulmonary: Negative Wheezes, Rales or Coarse
Gastrointestinal: Soft and Non Tender
Genito-Urinary: Negative CVA Tenderness
Objective Data
Lab Data
Lab Results
07/29/23 07:32
07/29/23 07:32
Estimated Creat Clear 125 ml/min 07/29/23 07:32
Total Bilirubin 0.3 mg/dl (0.2-1.3) 07/29/23 07:32
AST 35 U/L (14-36) 07/29/23 07:32
ALT 28 U/L (0-35) 07/29/23 07:32
Alkaline Phosphatase 81 U/L (38-126) 07/29/23 07:32
Amylase 39 U/L (30-110) 07/29/23 07:32
Most recent labs reviewed.
Micro Results:
07/28/23 09:41 Blood Culture - Preliminary
Blood/Venous No Growth in 24 hours- Final report to follow
07/25/23 00:43 Blood Culture - Preliminary
Blood/Venous No Growth in 4 days- Final report to follow
07/27/23 15:47 Blood Culture - Preliminary
Blood/Venous No Growth in 24 hours- Final report to follow
07/27/23 15:05 Blood Culture - Preliminary
Blood/Venous No Growth in 24 hours- Final report to follow
07/25/23 00:43 Blood Culture - Preliminary
Blood/Venous Escherichia coli
Gram Stain - Preliminary
07/25/23 00:43 Urine Culture - Final
Urine Escherichia coli
07/26/23 17:17 Chlamydia trachomatis (PCR) - Final
Urine Neisseria gonorrhoeae (PCR) - Final
07/25/23 CT a/p: Findings consistent with urinary tract infection on the right, with pyelonephritis. Perinephric edema, though without focal collection or abscess. No obstructing calculus.
07/28/23 ABD US: Normal appearance of the gallbladder, with no evidence for biliary ductal dilation. Bilateral pleural effusions are present. Trace amount of ascites is seen within the abdomen.
Care Review
Plan reviewed with: Physician (Dr. Ascencio)
--- NOTE | 2023-07-29 11:33 | W.PN.HOSP.TC ---
Addendum entered and electronically signed by Pedro Ascencio MD 07/29/23 17:36:
[id number]
Original Note:
Today's Communication/Plan
-
Continue po cipro 500mg bid (d5 abx) through 08/07/23.
F/u PCP, urology outpatient
Assessment / Plan
Assessment / Plan
Physical Exam
General: Other (17y F in no acute distress.)
HEENT: Moist mucous membranes, PERRLA and Other (Thyroidectomy scar.)
Respiratory: Clear and Other (pain with deep breathing.); No Wheezes, Rales or Rhonchi
Cardiac: S1/S2 and Regular Rhythm; No Murmur
GI: Soft, Non Distended, Normal Bowel Sounds and Other (Pos R sided abdominal tenderness without rebound / guarding.)
Genito-urinary: Costovertebral angle tend (Right CVAT)
Musculoskeletal: No Clubbing, No Cyanosis and No Edema
Neuro: AO x 3
A/P:� Patient is a 17y F with PMH significant for thyroid cancer / hypothyroidism who presents to ED complaining of right flank pain and fevers.
# E. coli Right pyelonephritis without obstruction
# E. coli bacteremia
# Sepsis secondary to the above
-Symptomatically improving
- Continue po cipro 500mg bid (d5 abx) until 08/06
�- Supportive care including antipyretics, pain control, IVFs, etc.
�- Follow for clinical improvement.
-repeat cultures ngtd
-id recs appreciated
# Mild periportal edema
#Fluid attenuation surrounding gallbladder
� Abdominal fullness
� I suspect secondary to acute pyelonephritis, aggressive fluid resuscitation
� Stop IV fluids, hemodynamically stable
� resolved on its own
� Follow-up complete abdominal ultrasound: unremarkable for any acute issues, or collection formation at the site of the kidneys
-F/u hepatitis panel neg
Hypokalemia
-monitor and replete
Papillary Carcinoma of the Thyroid
�- Patient is s/p partial thyroidectomy.
�- Has follow-up scan scheduled for Wednesday at [place] - may need to be rescheduled depending on hospital course here.
Hypothyroidism
�- Stable.� Continue current T4 supplementation / suppression.
DVT Prophylaxis:� SCDs; ambulating well
Code Status:� Full
More than 30 minutes spent in discharge including
Final examination of the patient
Summarizing hospital stay
Instructions for continuing care to all relevant caregivers
Preparation of discharge records, prescriptions, and referral forms
Total time spent (35 in minutes):
Anticipated Discharge: Today
Subjective/Interval History
-
Date of Service: July 29, 2023
feels much better, abd swelling now resolved
Objective Data
-
Labs:
Laboratory Results
07/29/23
07:32
WBC 6.6
Hgb 10.3 L
Hct 30.2 L
Plt Count 211
Sodium 135
Potassium 3.7
Chloride 109 H
Carbon Dioxide 22
BUN 6 L
Creatinine 0.6
Glucose 92
Calcium 8.0 L
Total Bilirubin 0.3
AST 35
ALT 28
Alkaline Phosphatase 81
Vital Signs:
Vital Signs
Temp Pulse Resp BP Pulse Ox
99.8 F 101 16 116/76 99
07/29/23 07:00 07/29/23 07:00 07/29/23 07:00 07/29/23 07:00 07/29/23 08:15
I&O
07/28/23 07/29/23 07/30/23
06:59 06:59 06:59
Intake Total 3520 / 3520 3290 / 3290
Balance 3520 / 3520 3290 / 3290
Review of Systems
-
History Source: Patient
All other systems: Not reviewed unless documented
Data Reviewed
-
CT Scan: Image personally visualized and interpreted and Report Reviewed by me
Ultrasound: Image personally visualized and interpreted and Report Reviewed by me
Labs: Labs Reviewed by me
--- NOTE | 2023-07-29 11:49 | W.DS.TRANS ---
DC Summary - Visual Journalist
-
Discharge Instructions:
Discharge Diagnosis/Procedures # E. coli Right pyelonephritis without
obstruction
# E. coli bacteremia
Diet No restrictions
Instructions:
Stand-Alone Forms:
Changes to Home Medications: Yes
Discharge Medications:
DC Medications w/original date entered in [employer]
elderberry fruit 350 mg capsule 350 mg PO DAILY Supplement 07/25/23
levothyroxine 50 mcg tablet 50 mcg PO DAILY AT 0700 Thyroid 07/25/23
ciprofloxacin HCl 500 mg tablet 500 mg PO BID 10 days #20 tabs 07/29/23
Home Medication Changes
ciprofloxacin HCl 500 mg tablet 500 mg PO BID 10 days #20 tabs 07/29/23
Pending Results: No
[2023-07-29 12:00] VITALS: BP 130/75
--- NOTE | 2023-07-29 12:00 | CM ---
Graduate Fellow spoke with pt and mother at bedside
Pt for d/c today
Has ride home with mother
Plan - home no needs
== END 2023-07-29 12:12 | disposition home or self-care (01) | DRG 872 ==
LOC: 3 WEST ACU 06:01
PROVIDERS: Internal Medicine; ADMITTING PHYSICIAN Hospitalist; ATTENDING PHYSICIAN Internal Medicine; EMERGENCY PHYSICIAN Emergency Medicine; FAMILY PHYSICIAN Family Medicine; OTHER PHYSICIAN Internal Medicine Infectious Disease
DX: A41.51 Sepsis due to Escherichia coli [E. coli] (principal); N10 Acute pyelonephritis; C73 Malignant neoplasm of thyroid gland; E06.3 Autoimmune thyroiditis; E87.6 Hypokalemia; Z11.52 Encounter for screening for COVID-19; Z79.890 Hormone replacement therapy; Z88.5 Allergy status to narcotic agent; Z88.8 Allergy status to other drugs, medicaments and biological substances; Z88.1 Allergy status to other antibiotic agents
CPT/HCPCS: 74177; 76700; 76770; 80048; 80053; 81003; 81015; 81025; 82150; 83690; 84443; 84703; 85025; 85027; 86705; 86706; 86709; 86803; 87040; 87077; 87086; 87088; 87186; 87205; 87340; 87491; 87591; 87811; 96361; 96365; 96375; 99284; Q9967